=== PATIENT | male | born 1985 | race Caucasian/White ===

== ENCOUNTER → 2018-10-26 | Outpatient (CLI) | payer OTHER | END | disposition home or self-care (01) | LOC: RESCLI 12:00 | DX: D22.5 Melanocytic nevi of trunk (principal); L91.8 Other hypertrophic disorders of the skin; Z88.8 Allergy status to other drugs, medicaments and biological substances ==

== ENCOUNTER → 2024-07-01 | Day surgery (SDC) | payer OTHER ==
[~2024-07-01] VITALS: Ht 175.2 cm; Wt 122.5 kg
[~2024-07-01] MED LIST: BUPIVACAINE 0.5% 10 ML VIAL ONE; Dexamethasone Sodium Phospha 20 MG/5 ML VIAL IV ONE; ESOMEPRAZOLE MA40 M1 PO; Ketamine Hydrochloride 50 MG/5 ML SYRINGE IV ONE; Labetalol Hydrochloride 20 MG/4 ML SYR IV ONE; Lactated Ringer's Solution 1,000 ML IV ONE; Midazolam Hydrochloride 2 MG/2 ML VIAL IV ONE; PROPOFOL 200 MG/20 ML VIAL IV ONE; Ropivacaine Hydrochloride 5 MG/ML 20 ML AMP IJ ONE; ceFAZolin sodium/sodium chlor 30 ML IV ONE; fentaNYL CITRATE 100 MCG/2 ML VIAL IV ONE
[2024-07-01 09:50] LABS: BUN 13 mg/dl (9-23); CHLORIDE 103 mmol/L (98-107); POTASSIUM 4.2 mmol/L (3.4-5.1)
[2024-07-01 14:16] VITALS: BP 135/76
[2024-07-01 18:09] VITALS: BP 114/55
[2024-07-01 18:21] VITALS: BP 119/45
[2024-07-01 18:40] VITALS: BP 121/76
[2024-07-01 18:56] VITALS: BP 118/78
[2024-07-01 19:07] VITALS: BP 113/57
== END | disposition home or self-care (01) ==
LOC: SDC 08:32
PROVIDERS: ATTEND Orthopaedic Surgery
DX: S46.212A Strain of muscle, fascia and tendon of other parts of biceps, left arm, initial encounter (principal); G89.18 Other acute postprocedural pain; F10.90 Alcohol use, unspecified, uncomplicated; F17.210 Nicotine dependence, cigarettes, uncomplicated; Z98.890 Other specified postprocedural states; Z91.040 Latex allergy status; Z79.899 Other long term (current) drug therapy; X58.XXXA Exposure to other specified factors, initial encounter; Y93.89 Activity, other specified; Y92.89 Other specified places as the place of occurrence of the external cause; Y99.8 Other external cause status